=== PATIENT | female | born 1975 | race Caucasian/White ===

== ENCOUNTER 2024-10-27 22:46 | Emergency (ER) | payer SELFPAY ==
[~2024-10-27] VITALS: Ht 162.6 cm; Wt 68.0 kg
[2024-10-27 23:02] VITALS: O2SAT 100
[2024-10-28 00:31] LABS: BASOPHILS % 0.4 % (0.0-2.0); EOSINOPHILS % 0.2 % (0.0-5.0); HEMATOCRIT. 39.3 % (36.0-48.0); HEMOGLOBIN. 13.1 g/dL (12.0-16.0); LYMPHOCYTES % 17.0 % (20.0-50.0); MEAN PLATELET VOLUME 7.7 fl (7.4-10.4); MONOCYTES % 4.4 % (2.0-8.0); NEUTROPHILS % 78.0 % (40.0-76.0); PLATELET 308 x1000/uL (130-400); RED BLOOD CELL COUNT 4.35 mill/uL (4.2-5.4); RED CELL DISTRIBUTION WIDTH 13.2 % (11.6-14.6)
[2024-10-28 00:46] LABS: CREATININE 0.6 mg/dL (0.6-1.0); UREA NITROGEN BLOOD 12 mg/dL (9-23)
[2024-10-28 00:47] LABS: ETHANOL BLOOD < 10 mg/dL (<10)
[2024-10-28 00:48] LABS: ASPARTATE AMINOTRANSFERASE 14 IU/L (<34); BILIRUBIN DIRECT 0.2 mg/dL (<=3.0); BILIRUBIN TOTAL 0.9 mg/dL (0.1-1.0); PROTEIN TOTAL 7.2 g/dL (6.0-8.3)
[2024-10-28 04:22] VITALS: BP 116/74; PULSE 66; RESP 17; TEMP 36.7; O2SAT 99
== END 2024-10-28 04:26 | disposition home or self-care (01) ==
LOC: ER 22:46
DX: F41.9 Anxiety disorder, unspecified (principal); F43.0 Acute stress reaction; F32.A Depression, unspecified; R07.9 Chest pain, unspecified; Z79.899 Other long term (current) drug therapy
CPT/HCPCS: 36415; 80048; 80076; 80307; 80320; 80329; 85025; 93005; 99285; G0480